=== PATIENT | female | born 1985 | race Caucasian/White ===

== ENCOUNTER 2016-12-08 12:11 | Emergency (ER) | payer BC ==
[2016-12-08 13:48] VITALS: BP 148/77
--- NOTE | 2016-12-08 13:54 | UC ---
Throat Pain/Nasal Lance HPI - HPI Summary HPI Summary: ST starting 2 days ago, wasn't bed until yesterday. Had chills all day yesterday and feels feverish today, hasn't taken temp. Denies nasal congestion or cough. 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 - Surgical History Surgical History: Yes Surgery Procedure, Year, and Place: Cholecystectomy, 2011, [place] - Family History Known Family History: Positive: None Negative: Blood Disorder - Social History Occupation: Employed Full-time - [employer] Lives: Alone Alcohol Use: Occasionally Substance Use Type: None Smoking Status (MU): Never Smoked Tobacco - Immunization History Most Recent Influenza Vaccination: May 2015 Review of Systems Constitutional: Chills, Fatigue Skin: Negative Eyes: Negative ENT: Sore Throat Respiratory: Negative Cardiovascular: Negative Gastrointestinal: Negative Genitourinary: Negative Motor: Negative Neurovascular: Negative Musculoskeletal: Negative Neurological: Negative Psychological: Negative All Other Systems Reviewed And Are Negative: Yes Physical Exam Triage Information Reviewed: Yes Appearance: Well-Appearing, No Pain Distress, Obese Vital Signs Reviewed: Yes Eye Exam: Normal Eyes: Positive: Conjunctiva Clear ENT: Positive: Pharyngeal erythema - R>L, TMs normal, Tonsillar swelling, Tonsillar exudate Dental Exam: Normal Neck: Positive: Supple, Enlarged Nodes @ - tonsillar Respiratory Exam: Normal Respiratory: Positive: Chest non-tender, Lungs clear, Normal breath sounds, No respiratory distress, No accessory muscle use Cardiovascular Exam: Normal Cardiovascular: Positive: RRR, No Murmur Musculoskeletal Exam: Normal Neurological Exam: Normal Psychological Exam: Normal Skin Exam: Normal Throat Pain/Nasal Course/Dx - Differential Dx/Diagnosis Provider Diagnoses: tonsillitis. elevated blood pressure due to discomfort Discharge - Discharge Plan Condition: Stable Disposition: HOME Patient Education Materials: Tonsillitis (ED) Referrals: Tanja Galdamez MD [Medical Doctor] - Additional Instructions: Rapid strep negative. Your throat infection is either a different bacteria ( which should resolve in a few days without treatment) or a virus (which should also resolve in a few days without treatment). If you have severe or prolonged symptoms, please return here or see your primary care provider.
== END 2016-12-08 14:12 | disposition home or self-care (01) ==
LOC: UCCORT 12:11
DX: J03.90 Acute tonsillitis, unspecified (principal); R03.0 Elevated blood-pressure reading, without diagnosis of hypertension; I49.3 Ventricular premature depolarization; Z90.49 Acquired absence of other specified parts of digestive tract
CPT/HCPCS: 87651; 99211; G0463